=== PATIENT | male | born 1935 | race Caucasian/White ===

== ENCOUNTER 2023-11-20 09:22 | Inpatient (IN) | payer MEDICARE, BC ==
[2023-11-20] VITALS (7 sets, daily range): BP systolic 133–154; BP diastolic 74–81; PULSE 82–88; TEMP 97.7–99.1
[~2023-11-20] VITALS: Ht 167.6 cm; Wt 66.9 kg
[2023-11-20] MEDS ORDERED: NS 1,000 ML IV ONE ×2 (10:15→15:30)
[2023-11-20 10:45] LABS: HEMATOCRIT 48.6 % (42.0-52.0); HEMOGLOBIN 17.3 g/dl (13.5-18.0); MEAN CELL VOLUME 100 fl (80.0-100.0); MEAN CORPUSCULAR HEMOGLOBIN 36 pg (27-31); MEAN CORPUSCULAR HGB CONC 36 g/dl (33.0-37.0); MEAN PLATELET VOLUME 10.7 fl (7.4-10.4); PLATELET COUNT 200 K/mm3 (130-400); RED BLOOD COUNT 4.84 M/mm3 (4.20-5.60); REDCELL DISTRIBUTION WIDTH-CV 12.9 % (11.5-14.5)
[2023-11-20 11:27] LABS: ALBUMIN 3.7 g/dL (3.4-4.8); BILIRUBIN,TOTAL 6.7 mg/dL (0.2-1.2); C-REACTIVE PROTEIN 12.7 mg/dL (0.00-0.50); CREATININE, serum 1.56 mg/dL (0.72-1.25); POTASSIUM 4.1 mEq/L (3.5-4.5); TOTAL PROTEIN 7.4 g/dl (6.2-8.1)
[2023-11-20 11:40] LABS: BAND 3 % (0-10); LYMPHOCYTE 5 % (20.0-51.0); NEUTROPHILS 69 % (42.0-75.2); PLATELET ESTIMATE NORMAL (NORMAL)
[2023-11-20] MEDS ORDERED: MAXZIDE-25MG TA1 TAB PO ×2 (12:11→13:59)
[2023-11-20] MEDS ORDERED: DYRENIUM 50MG C50 MG PO (12:12)
[2023-11-20] MEDS ORDERED: MAVIK4 MG PO (12:13)
[2023-11-20] MEDS ORDERED: SYNTHROID0.137 MG (12:14)
[2023-11-20] MEDS ORDERED: MULTIPLE VITAMI1 CAP PO (12:15)
[2023-11-20] MEDS ORDERED: MELATONIN5 M1 PO (12:15)
[2023-11-20] MEDS ORDERED: TOPROL XL 25MG25 MG PO (12:15)
[2023-11-20] MEDS ORDERED: LUTEIN20 M1 PO (12:16)
[2023-11-20] MEDS ORDERED: EPA FISH OIL1 SGL PO (12:16)
[2023-11-20 12:55] LABS: INR 1.3 (0.8-3.0); PROTHROMBIN TIME 13.9 SECONDS (9.7-12.8)
[2023-11-20 12:57] LABS: PARTIAL THROMBOPLASTIN TIME 30.3 SECONDS (26.0-37.0)
[2023-11-20] MEDS ORDERED: EUTHYROX137 MCG PO (13:57)
--- NOTE | 2023-11-20 14:37 | NUR ---
Patient arrived to the medical unit to room 352. Alert and oriented x 4, VSS, some hypertension. Denies any pain or discomfort at this time. GrandsoneCurt, at bedside. Assessment intake completed.
[2023-11-20] MEDS ORDERED: NS 1,000 ML IV SCH (15:30)
[2023-11-20] MEDS ORDERED: Ondansetron 4 MG/2 ML VIAL IV PRN (15:30)
[2023-11-20] MEDS ORDERED: Morphine 4 MG/ML VIAL IV PRN (15:30)
--- NOTE | 2023-11-20 19:30 | NUR ---
Patient resting in bed. Denies any pain or needs at this time. Assessment complete. IV in left AC infusing without complications. Call light and personal items in reach. Bed in low position and bed alarm on.
[2023-11-20] MEDS ORDERED: Melatonin 3 MG TAB PO SCH (21:00)
[2023-11-21] VITALS (21 sets, daily range): BP systolic 108–153; BP diastolic 49–92; PULSE 76–90; TEMP 97.6–98.3
[2023-11-21 06:49] LABS: HEMATOCRIT 43.5 % (42.0-52.0); MEAN CELL VOLUME 101 fl (80.0-100.0); MEAN CORPUSCULAR HEMOGLOBIN 35 pg (27-31); MEAN CORPUSCULAR HGB CONC 35 g/dl (33.0-37.0); MEAN PLATELET VOLUME 10.7 fl (7.4-10.4); PLATELET COUNT 154 K/mm3 (130-400); RED BLOOD COUNT 4.29 M/mm3 (4.20-5.60); REDCELL DISTRIBUTION WIDTH-CV 13.1 % (11.5-14.5)
[2023-11-21 06:58] LABS: HEMOGLOBIN 15.1 g/dl (13.5-18.0)
[2023-11-21] MEDS ORDERED: Levothyroxine 0.112 MG,Levothyroxine 0.025 MG PO SCH (07:00)
[2023-11-21 07:09] LABS: ALBUMIN 2.7 g/dL (3.4-4.8); BILIRUBIN,TOTAL 3.5 mg/dL (0.2-1.2); CALCIUM 8.7 mg/dL (8.4-10.2); CREATININE, serum 1.08 mg/dL (0.72-1.25); MAGNESIUM 1.3 mg/dL (1.6-2.6); TOTAL PROTEIN 5.8 g/dl (6.2-8.1)
[2023-11-21 07:16] LABS: LYMPHOCYTE 3 % (20.0-51.0); METAMYELOCYTE 1 % (0-0); NEUTROPHILS 85 % (42.0-75.2)
--- NOTE | 2023-11-21 08:01 | NUR ---
Bedside report received from ESSENCE Valdez. Pt awake request to ambulate to bathroom. Assisted pt to bathroom and back to bed with no complications. Call light within reach.
--- NOTE | 2023-11-21 08:07 | NUR ---
Critical WBC of 24.7 notified to ANTONIO Galvez by phone. No new orders at this time.
[2023-11-21] MEDS ORDERED: Magnesium Oxide 400 MG TAB PO SCH (11:10)
--- NOTE | 2023-11-21 11:12 | NUR ---
Pt resting in bed with eyes closed. Pt awakens with this nurse entrance. Pt is A&Ox4. Shift assessment completed. VSS. NPO status in place. IVF infusing into LAC with no complications. Pt ambulates to bathroom and back to bed with stand by assist. Pt denies pain/discomfort at this time rating, 0/10. Pt has no request at this time. Call light within reach and fall precautions in place.
[2023-11-21] MEDS ORDERED: Magnesium Sulfate 4 GM/50 ML IV SOLN IV ONE (11:15)
--- NOTE | 2023-11-21 14:46 | NUR ---
D: Logistics Engineer stopped by room on rounds. A: Pt was resting and content with his son in the room. Pt has no needs right now. Pt and son both appreciated the visit. P: Logistics Engineer informed pt that if he needed anything from the consumer safety inspector area to let his nurse know. Logistics Engineer will follow up as needed.
[2023-11-21] MEDS ORDERED: Lidocaine PF 2% (20 MG/ML) 5 ML VIAL ONE (15:16)
--- NOTE | 2023-11-21 15:41 | NUR ---
Pt left medical floor to OR by bed.
[2023-11-21] MEDS ORDERED: Iohexol 350 - 100 ML VIAL BILE DUCT ONE (16:16)
--- NOTE | 2023-11-21 16:40 | NUR ---
Gang Leader met with patient to discuss discharge planning. Patient's son, Esteban (ph#[phone]) is at bedside. Patient lives at [facility] and sees Dr. Hamilton for primary care. Patient gets medications from [facility] and normally picks them up independently. Patient is independent with ADLS, including driving and besides a CPAP, does not use any other DME. Patient advised his sons, Esteban and Curt (ph#[phone]) are his DPOA-HC. Patient hopes to return to [place] at time of discharge. SW requested PT/OT orders and faxed clinical updates to [facility]. Discharge Plan: [facility]
--- NOTE | 2023-11-21 16:45 | NUR ---
Pt back to medical floor from OR. Report received from HOOP MAKER HELPER MACHINEESSENCE Chau. Pt is awake in bed. A&Ox4. Post op vitals stable. Pt denies pain/discomfort. IVF infusing into LAC with no complications. TORB for clear liquid diet and NPO at midnight per Dr. Wilson by phone. Pt has no request at this time. Call light within reach and fall precautions in place.
[2023-11-22] VITALS (13 sets, daily range): BP systolic 121–185; BP diastolic 71–90; PULSE 75–145; TEMP 97.4–98.2
--- NOTE | 2023-11-22 00:52 | NUR ---
patient lying in bed, alert and oriented x4. denies chest pain and shortness of breath. visually having labored breathing with some use of ascessory muscle when recovering from exertion, pt continues to deny shortness of breath. HOB elevated at 40 degrees, O2 sats around 93-95 percent on 1 to 2 L of oxygen. IV in LAC is patent, site is CDI with NS running at 125 ml/hr. pt has no further needs questions, or concerns at this time. fall precautions in place, call light within reach. will continue to monitor.
[2023-11-22] MEDS ORDERED: Furosemide 40 MG/4 ML VIAL IV ONE (02:00)
[2023-11-22] MEDS ORDERED: Albuterol/Ipratropium 3 MG-0.5 MG/3 ML Neb Soln IH PRN (02:15)
[2023-11-22 03:13] LABS: HEMATOCRIT 44.2 % (42.0-52.0); HEMOGLOBIN 15.8 g/dl (13.5-18.0); MEAN CELL VOLUME 99 fl (80.0-100.0); MEAN CORPUSCULAR HEMOGLOBIN 36 pg (27-31); MEAN CORPUSCULAR HGB CONC 36 g/dl (33.0-37.0); MEAN PLATELET VOLUME 10.8 fl (7.4-10.4); PLATELET COUNT 143 K/mm3 (130-400); RED BLOOD COUNT 4.45 M/mm3 (4.20-5.60); REDCELL DISTRIBUTION WIDTH-CV 12.9 % (11.5-14.5)
[2023-11-22 03:27] LABS: ALBUMIN 2.8 g/dL (3.4-4.8); BILIRUBIN,TOTAL 2.6 mg/dL (0.2-1.2); CALCIUM 8.5 mg/dL (8.4-10.2); CREATININE, serum 1.05 mg/dL (0.72-1.25); MAGNESIUM 2.1 mg/dL (1.6-2.6); POTASSIUM 3.5 mEq/L (3.5-4.5); TOTAL PROTEIN 6.4 g/dl (6.2-8.1)
[2023-11-22 03:47] LABS: BAND 3 % (0-10); LYMPHOCYTE 4 % (20.0-51.0); NEUTROPHILS 77 % (42.0-75.2)
[2023-11-22 03:48] LABS: PLATELET ESTIMATE NORMAL (NORMAL)
[2023-11-22] MEDS ORDERED: Potassium Chloride 100 ML IV SCH (04:15)
[2023-11-22] MEDS ORDERED: *Potassium Replacement Protocol MC SCH (04:15)
[2023-11-22] MEDS ORDERED: Heparin/D5W 250 ML IV SCH (04:30)
[2023-11-22] MEDS ORDERED: dilTIAZem 25 MG/5 ML VIAL IV ONE (04:30)
[2023-11-22] MEDS ORDERED: Heparin 5,000 UNITS/ML 1 ML VIAL IV PRN (04:30)
[2023-11-22] MEDS ORDERED: Heparin 5,000 UNITS/ML 1 ML VIAL IV ONE (04:30)
[2023-11-22 05:08] LABS: INR 1.3 (0.8-3.0); PROTHROMBIN TIME 14.2 SECONDS (9.7-12.8)
[2023-11-22 05:10] LABS: PARTIAL THROMBOPLASTIN TIME 29.7 SECONDS (26.0-37.0)
[2023-11-22] MEDS ORDERED: NS 1,000 ML IV SCH (08:30)
[2023-11-22] MEDS ORDERED: Ondansetron 4 MG/2 ML VIAL IV PRN (12:15)
[2023-11-22] MEDS ORDERED: LR 1,000 ML IV SCH (12:15)
[2023-11-22] MEDS ORDERED: hydrALAZINE 20 MG/ML 1 ML VIAL IV PRN (12:15)
[2023-11-22] MEDS ORDERED: droPERidol 2.5 MG/ML 2 ML VIAL IV PRN (12:15)
[2023-11-22] MEDS ORDERED: fentaNYL 50 MCG/ML 1 ML SYRINGE/VIAL [PACU/SDC ONLY] IV PRN (12:15)
[2023-11-22] MEDS ORDERED: HYDROmorphone 1 MG/1 ML SYRINGE [PACU/SDC ONLY] IV PRN ×2 (12:15)
[2023-11-22] MEDS ORDERED: Meperidine 50 MG/ML 1 ML VIAL IV PRN (12:15)
[2023-11-22] MEDS ORDERED: Indocyanine Green 6.25 MG in Water For Injection,Sterile 1.25 ML IV ONE (13:00)
[2023-11-22] MEDS ORDERED: Rocuronium 50 MG/5 ML Multi-Dose VIAL ONE (13:34)
[2023-11-22] MEDS ORDERED: fentaNYL 50 MCG/ML 2 ML VIAL ONE (13:34)
[2023-11-22] MEDS ORDERED: NS 10 ML IV ONE (13:36)
[2023-11-22] MEDS ORDERED: Ondansetron 4 MG/2 ML VIAL ONE (13:36)
[2023-11-22] MEDS ORDERED: dexAMETHasone 10 MG/ML VIAL ONE (13:36)
[2023-11-22] MEDS ORDERED: Topical Skin Adhesive 1 EACH (1 ML) TOP ONE (13:41)
--- NOTE | 2023-11-22 15:26 | NUR ---
Pen Tender met with patient and his son to follow up on recommendation for Home Health. Patient does not feel this is needed at this time and that his son, Esteban will be staying with him at time of discharge. Patient stated he can speak with Dr. Hamilton about this at a later time if he feels he needs it. SW provided clinical updates to Kaela at [facility]. Discharge Plan: [facility]
[2023-11-22] MEDS ORDERED: NS 100 ML IV ONE (15:39)
[2023-11-22] MEDS ORDERED: Phenylephrine 10 MG/ML VIAL ONE (15:39)
--- NOTE | 2023-11-22 17:00 | NUR ---
Pt came back from intervention, alert and oriented x 4, denies any pain at this time. 4 sites CDI, no dressing.
[2023-11-23] VITALS (11 sets, daily range): BP systolic 137–158; BP diastolic 66–87; PULSE 66–82; TEMP 97.4–98.1
[2023-11-23 06:50] LABS: HEMATOCRIT 42.1 % (42.0-52.0); MEAN CELL VOLUME 101 fl (80.0-100.0); MEAN CORPUSCULAR HEMOGLOBIN 36 pg (27-31); MEAN CORPUSCULAR HGB CONC 36 g/dl (33.0-37.0); MEAN PLATELET VOLUME 10.7 fl (7.4-10.4); PLATELET COUNT 160 K/mm3 (130-400); RED BLOOD COUNT 4.19 M/mm3 (4.20-5.60); REDCELL DISTRIBUTION WIDTH-CV 12.4 % (11.5-14.5)
[2023-11-23 07:11] LABS: ALBUMIN 2.5 g/dL (3.4-4.8); BILIRUBIN,TOTAL 1.7 mg/dL (0.2-1.2); CALCIUM 8.2 mg/dL (8.4-10.2); CREATININE, serum 0.89 mg/dL (0.72-1.25); MAGNESIUM 2.4 mg/dL (1.6-2.6); POTASSIUM 4.1 mEq/L (3.5-4.5)
[2023-11-23 08:17] LABS: BAND 5 % (0-10); LYMPHOCYTE 3 % (20.0-51.0); NEUTROPHILS 89 % (42.0-75.2); PLATELET ESTIMATE NORMAL (NORMAL)
[2023-11-23] MEDS ORDERED: Lisinopril 20 MG TAB PO SCH (09:00)
[2023-11-23] MEDS ORDERED: Spironolactone 12.5 MG TAB PO SCH (09:00)
[2023-11-23] MEDS ORDERED: Omega-3 Fatty Acid Esters (OTC) 1,000 MG CAP PO SCH (09:00)
--- NOTE | 2023-11-23 09:11 | NUR ---
PATIENT SITTING UP IN RECLINER UPON ENTERING ROOM. MORNING MEDICATIONS ADMINISTERED. PATIENT DENIES ANY PAIN, ABDOMEN IS SLIGHTLY FIRM, PATIENT REPORTS HE HAS BEEN PASSING GAS AND HAS BOWEL SOUNDS. LAP SITES X4 ARE ALL C/D/I, GENERALIZED BRUISING NOTED. PATIENT REPORTS A "GROWLING SOUND" WITH EACH BREATH WHENEVER HE LAYS FLAT THAT IS CONCERNING HIM. THIS RN NOTED SOME WHEEZES UPON LUNG AUSCULTATION, PATIENT CURRENTLY ON 2L O2 VIA NC. UPDATED ON PLAN OF CARE. CALL LIGHT WITHIN REACH. WILL CONTINUE TO MONITOR.
--- NOTE | 2023-11-23 15:30 | NUR ---
SW notified that patient is planned to discharge tomorrow to home. SW met with patient to discuss Medicare IM form, patient agreeable with discharge and signed form. Original on chart, copy provided to patient. Discharge plan: Home
[2023-11-24 00:16] VITALS: BP 149/77; PULSE 68; TEMP 98
[2023-11-24 00:30] VITALS: BP_SYST 149
[2023-11-24 03:59] VITALS: BP 151/77; PULSE 62; TEMP 98
[2023-11-24 04:15] VITALS: BP_SYST 151
--- NOTE | 2023-11-24 05:20 | NUR ---
ASSESSMENT COMPLETE FOR OVERHEAD LINE WORKER. PT DECIDED TO REMAIN IN HIS RECLINER THROUGHOUT THIS SHIFT, STATING HE FELT MORE COMFORTABLE AND BREATHED BETTER IN HIS RECLINER. PT DENIED GENERAL PAIN, CHEST PAIN, PALPITATIONS, SOB, N,V,D OR DIZZINESS. FALL PRECAUTIONS IN PLACE. CHAIR ALARM ON. CALL LIGHT WITHIN REACH.
[2023-11-24 07:39] VITALS: BP 157/71; PULSE 59; TEMP 97.5
[2023-11-24 08:30] VITALS: BP_SYST 157
--- NOTE | 2023-11-24 08:30 | NUR ---
PATIENT SITTING UP IN RECLINER. MORNING MEDICATIONS ADMINISTERED. PATIENT IS EAGER TO DISCHARGE HOME TODAY. UPDATED ON PLAN OF CARE. CALL LIGHT WITHIN REACH. WILL CONTINUE TO MONITOR.
[2023-11-24] MEDS ORDERED: ALDACTONE 25MG25 M1 PO (09:14)
[2023-11-24] MEDS ORDERED: MAG-OX 400400 MG/TAB PO (09:21)
[2023-11-24] MEDS ORDERED: AMOXICILLIN/CLA1 TA1 PO (09:22)
--- NOTE | 2023-11-24 10:47 | NUR ---
DISCHARGE INSTRUSTIONS REVIEWED, FAMILY MEMBER AT BEDSIDE, ALL QUESTIONS ANSWERED. IV'S REMOVED, TELEMETRY REMOVED. PATIENT WILL BE ESCORTED OFF OF UNIT BY [facility].
== END 2023-11-24 11:02 | disposition home or self-care (01) | DRG 418 ==
LOC: COL.ER 09:22 → MEDICAL 12:48
PROVIDERS: Emergency Medicine; Nurse Practitioner Family; ADMIT Internal Medicine
PROC: 0FT44ZZ Resection of Gallbladder, Percutaneous Endoscopic Approach (ICD-10-PCS; principal; 2023-11-20)
DX: K85.10 Biliary acute pancreatitis without necrosis or infection (principal); I48.92 Unspecified atrial flutter; N17.9 Acute kidney failure, unspecified; R44.3 Hallucinations, unspecified; I10 Essential (primary) hypertension; E03.9 Hypothyroidism, unspecified; R53.81 Other malaise; Z66 Do not resuscitate
CPT/HCPCS: C1769; J0690; J1100; J1940; J2371; J2405; J2543; J2704; J3010; J3475; J3480; J7030; Q9967

== ENCOUNTER 2023-12-25 12:03 | Emergency (ER) | payer MEDICARE, BC ==
[~2023-12-25] VITALS: Ht 167.6 cm; Wt 77.7 kg
[~2023-12-25 12:03] MED LIST: ALDACTONE 25MG25 M1 PO; AMOXICILLIN/CLA1 TA1 PO; DYRENIUM 50MG C50 MG PO; EPA FISH OIL1 SGL PO; EUTHYROX137 MCG PO; LUTEIN20 M1 PO; MAG-OX 400400 MG/TAB PO; MAVIK4 MG PO; MAXZIDE-25MG TA1 TAB PO; MELATONIN5 M1 PO; MULTIPLE VITAMI1 CAP PO; SYNTHROID0.137 MG; TOPROL XL 25MG25 MG PO
[2023-12-25 12:10] VITALS: TEMP 97.5
[2023-12-25] MEDS ORDERED: Ondansetron 4 MG/2 ML VIAL IV ONE (14:45)
[2023-12-25] MEDS ORDERED: NS 1,000 ML IV ONE (14:45)
[2023-12-25] MEDS ORDERED: fentaNYL 50 MCG/ML 2 ML VIAL IV ONE (14:45)
[2023-12-25 15:34] LABS: HEMATOCRIT 43.2 % (42.0-52.0); HEMOGLOBIN 15.3 g/dl (13.5-18.0); MEAN CELL VOLUME 100 fl (80.0-100.0); MEAN CORPUSCULAR HEMOGLOBIN 35 pg (27-31); MEAN CORPUSCULAR HGB CONC 35 g/dl (33.0-37.0); MEAN PLATELET VOLUME 9.5 fl (7.4-10.4); PLATELET COUNT 249 K/mm3 (130-400); RED BLOOD COUNT 4.34 M/mm3 (4.20-5.60); REDCELL DISTRIBUTION WIDTH-CV 11.9 % (11.5-14.5)
[2023-12-25 15:35] LABS: INR 1.2 (0.8-3.0)
[2023-12-25 15:37] LABS: ALANINE AMINOTRANSFERASE 26 U/L (0-55); ALBUMIN 3.9 g/dL (3.4-4.8); ALKALINE PHOSPHATASE 66 U/L (40-150); ANION GAP 12 mmol/L (7-16); AST,SGOT 25 U/L (5-34); BILIRUBIN,TOTAL 1.3 mg/dL (0.2-1.2); BLOOD UREA NITROGEN 15 mg/dL (8-26); CALCIUM 9.4 mg/dL (8.4-10.2); CHLORIDE 98 mEq/L (98-107); CREATININE, serum 1.31 mg/dL (0.72-1.25); GLUCOSE 100 mg/dL (70-99); MAGNESIUM 1.6 mg/dL (1.6-2.6); POTASSIUM 4.2 mEq/L (3.5-4.5); SODIUM 132 mEq/L (136-145); TOTAL PROTEIN 7.1 g/dl (6.2-8.1)
[2023-12-25 15:38] LABS: PARTIAL THROMBOPLASTIN TIME 30.4 SECONDS (26.0-37.0)
[2023-12-25 15:58] LABS: THYROID STIMULATING HORMONE 3.061 uIU/mL (0.350-4.940)
[2023-12-25 16:12] LABS: TROPONIN-I < 0.010 ng/mL (0.00-0.033)
[2023-12-25] MEDS ORDERED: Iohexol 300 - 100 ML VIAL IV ONE (16:19)
[2023-12-25] MEDS ORDERED: NS 100 ML IV SCH (16:19)
[2023-12-25 16:45] LABS: BAND 2 % (0-10); LYMPHOCYTE 1 % (20.0-51.0); NEUTROPHILS 90 % (42.0-75.2)
[2023-12-25] MEDS ORDERED: FLAGYL500 MG PO (17:50)
[2023-12-25] MEDS ORDERED: AMOXICILLIN 8751 TAB PO (17:50)
[2023-12-25] MEDS ORDERED: NORCO 325 MG-51 TAB PO (17:52)
[2023-12-25] MEDS ORDERED: Home HYDROcodone/Acetaminophen 5/325 MG #4 TABS/PACK PO ONE (18:45)
[2023-12-25 19:09] VITALS: BP 148/76; PULSE 96
[2023-12-25 19:21] LABS: LIPASE 42 U/L (8-78)
== END 2023-12-25 19:10 | disposition home or self-care (01) ==
LOC: COL.ER 12:03
PROVIDERS: Family Medicine
DX: K57.92 Diverticulitis of intestine, part unspecified, without perforation or abscess without bleeding (principal)
CPT/HCPCS: J2405; J2543; J3010; J7030; Q9967